=== PATIENT | male | born 1945 | race Caucasian/White ===

== ENCOUNTER 2017-12-18 07:41 | Day surgery (SDC) ==
[2017-12-18] MEDS ORDERED: LIDOCAINE 1% 20 ML MDV ID STA ×2 (08:25→12:52)
[2017-12-18] MEDS: CYCLOGYL 2% OPTH OP PRN ×3 (08:25→08:35)
[2017-12-18] MEDS: BETADINE OPTH PREP OP PRN ×2 (08:25→09:26)
[2017-12-18] MEDS: TETRACAINE 0.5% UNIT-DOSE OP PRN ×3 (08:25→09:28)
[2017-12-18] MEDS ORDERED: BRIMONIDINE TARTRATE 0.2% OPTH SOL OP PRN (08:49)
[2017-12-18] MEDS ORDERED: BSS WITH EPINEPHRINE OP ONE (08:49)
[2017-12-18] MEDS ORDERED: LIDOCAINE 1%/PHENYLEPHRINE 1.5% BSS (SURGERY) INTRAOCULA ONE (08:49)
[2017-12-18] MEDS ORDERED: DEX-MOXI-KETOR OPTH INJ 1/0.5/0.4 MG/ML IO ONE (08:49)
[2017-12-18] MEDS ORDERED: ZOFRAN 4 MG/2 ML IVP ONE (08:49)
[2017-12-18] MEDS ORDERED: SUBLIMAZE ONE (09:35)
[2017-12-18] MEDS ORDERED: VERSED ONE (09:35)
[2017-12-18 15:55] VITALS: BP 132/67; TEMP 98.4
== END 2017-12-18 10:50 | disposition home or self-care (01) ==
LOC: SURG 07:41
PROVIDERS: ATTEND Ophthalmology
DX: H25.812 Combined forms of age-related cataract, left eye (principal)

== ENCOUNTER 2018-02-13 07:14 | Day surgery (SDC) ==
[2018-02-13] MEDS ORDERED: ZOFRAN 4 MG/2 ML IVP ONE (07:44)
[2018-02-13] MEDS ORDERED: BRIMONIDINE TARTRATE 0.2% OPTH SOL OP PRN (07:44)
[2018-02-13] MEDS ORDERED: LIDOCAINE 1% 20 ML MDV ID STA (07:44)
[2018-02-13] MEDS: TETRACAINE 0.5% UNIT-DOSE OP PRN ×2 (07:47→09:00)
[2018-02-13] MEDS: BETADINE OPTH PREP OP PRN ×2 (07:47→09:00)
[2018-02-13] MEDS: CYCLOGYL 2% OPTH OP PRN ×3 (07:48→07:58)
[2018-02-13] MEDS ORDERED: VERSED ONE (09:00)
[2018-02-13] MEDS ORDERED: SUBLIMAZE ONE (09:00)
[2018-02-13] MEDS: BSS WITH EPINEPHRINE OP ONE ×2 (09:14→09:16)
[2018-02-13] MEDS: DEX-MOXI-KETOR OPTH INJ 1/0.5/0.4 MG/ML IO ONE ×2 (09:14→09:16)
[2018-02-13] MEDS: LIDOCAINE 1%/PHENYLEPHRINE 1.5% BSS (SURGERY) INTRAOCULA ONE ×2 (09:14→09:16)
[2018-02-13 16:10] VITALS: TEMP 98.4
[2018-02-15 13:21] VITALS: BP 112/67
== END 2018-02-13 10:00 | disposition home or self-care (01) ==
LOC: SURG 07:14
PROVIDERS: ATTEND Ophthalmology
DX: H25.811 Combined forms of age-related cataract, right eye (principal)